=== PATIENT | male | born 1980 | race Caucasian/White ===

== ENCOUNTER 2018-05-16 09:08 | Observation (INO) ==
--- NOTE | 2018-05-16 09:36 | ED ---
HPI General Chief complaint: Urogenital-Male Stated complaint: Urinary/Headache/Stomach/Skin Complaint Time Seen by Provider: 05/16/18 09:24 History of Present Illness HPI narrative: This is a 38-year-old male who presents for evaluation. He reports that for 4 days he has had dark colored urine and body aches. He has never had this problem before. He reports slight discomfort with urination but would not describe it as pain. He denies abdominal pain, nausea or vomiting, urethral discharge, is not sexually active. 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 No known history of hepatitis. Symptoms are moderate, duration 4 days, no obvious aggravating or other complaints at this time. Related Data Home Medications Medication Instructions Recorded Confirmed No Known Home Medications 05/16/18 05/16/18 Allergies Allergy/AdvReac Type Severity Reaction Status Date / Time No Known Allergies Allergy Verified 05/16/18 09:21 Review of Systems ROS: all other systems reviewed are negative PMFSH Surgical History Surgical History H/O neck surgery (Acute) History of surgery on arm (Acute) Social History Social History Substance History: Past History Second Hand Smoke Exposure: No Smoking Status: Current every day smoker Tobacco Type: Cigarettes How Often Do You Have a Drink Containing Alcohol: Monthly or less Recent Travel in [facility] within the Last 8 Weeks: No Recent Out of Country Travel within the Last 8 Weeks: No Exam Narrative Exam Narrative: GENERAL: Well-developed well-nourished male no acute distress SKIN: Warm and dry. HEAD: Atraumatic. Normocephalic. EYES: Pupils equal and round. +scleral icterus. No injection or drainage. ENT: No nasal bleeding or discharge. Mucous membranes pink and moist. NECK: Trachea midline. No JVD. CARDIOVASCULAR: Regular rate and rhythm. No murmur appreciated. RESPIRATORY: No accessory muscle use. Clear to auscultation. Breath sounds equal bilaterally. GASTROINTESTINAL: Abdomen soft, non-tender, nondistended. Hepatic and splenic margins not palpable. MUSCULOSKELETAL: No obvious deformities. No clubbing. No cyanosis. No edema. NEUROLOGICAL: Awake and alert. No obvious cranial nerve deficits. Motor grossly within normal limits. Normal speech. Course Initial Documented Vital Signs Temperature 99.2 F 05/16/18 09:17 Pulse Rate 88 05/16/18 09:17 Respiratory Rate 16 05/16/18 09:17 Blood Pressure 114/64 05/16/18 09:17 Pulse Oximetry 98 05/16/18 09:17 Last Documented Vital Signs Temperature 99.2 F 05/16/18 09:17 Pulse Rate 88 05/16/18 09:17 Respiratory Rate 16 05/16/18 09:17 Blood Pressure 114/64 05/16/18 09:17 Pulse Oximetry 98 05/16/18 09:17 Medical Decision Making ASHLYN Attestation ASHLYN supervised visit: Yes Attestation: I was present with the advanced practitioner during the management of this patient. I discussed the case with the advanced practitioner and agree with the findings and plan as documented in their note except as noted below. 38yM presenting with myalgias, chills, and dark discoloration of urine x 4 days. The patient also admits to urinary urgency but denies dysuria. He denies penile lesions or discharge, admits to IVDA. Family history significant for brother with hep C, no family history of kidney disease. Plan is to check labs and urine, give IV fluids, reassess. MDM Narrative Medical decision making narrative: 38-year-old male with 4-day history of dark colored urine and body aches. His urine sample at bedside is tea colored. IV established, lab work sent, the patient was given IV fluid bolus. Lab work reviewed, liver enzymes are significantly elevated, bilirubin 4.3, AST 1941, ALT 2169, this and his history of IV drug use is suspicious for viral hepatitis. Plan is to admit the patient for further evaluation and treatment. Hepatitis profile ordered. Medical Screen Exam Complete: Yes Emergency Medical Condition: Yes Differential Diagnosis Differential Diagnosis: Rhabdomyolysis, dehydration, UTI, hematuria, elevated bilirubin level Lab Data Result diagrams: 05/16/18 09:45 05/16/18 09:45 Lab Results 05/16/18 05/16/18 05/16/18 Range/Units 09:45 09:45 09:45 WBC 4.0 (4.0-11.0) th/mm3 RBC 4.19 L (4.50-5.90) mil/mm3 Hgb 13.3 (13.0-17.0) gm/dL Hct 38.7 L (39.0-51.0) % MCV 92.4 (80.0-100.0) fL MCH 31.7 (27.0-34.0) pg MCHC 34.3 (32.0-36.0) % RDW 14.0 (11.6-17.2) % Plt Count 155 (150-450) th/mm3 MPV 9.3 (7.0-11.0) fL Neut % (Auto) 45.7 (16.0-70.0) % Lymph % (Auto) 31.9 (9.0-44.0) % Swisher % (Auto) 12.4 H (0.0-8.0) % Eos % (Auto) 3.9 (0.0-4.0) % Baso % (Auto) 6.1 H (0.0-2.0) % Neut # (Auto) 1.8 (1.8-7.7) th/mm3 Lymph # (Auto) 1.3 (1.0-4.8) th/mm3 Swisher # (Auto) 0.5 (0.0-0.9) th/mm3 Eos # (Auto) 0.2 (0.0-0.4) th/mm3 Baso # (Auto) 0.2 (0.0-0.2) th/mm3 WBC Differential . Differential Comment Auto diff final Sodium 137 (136-145) meq/L Potassium 3.6 (3.5-5.1) meq/L Chloride 102 (98-107) meq/L Carbon Dioxide 24.7 (21.0-32.0) meq/L Anion Gap 10 (5-15) meq/L BUN 10 (7-18) mg/dL Creatinine 0.80 (0.60-1.30) mg/dL Estimated GFR Greater than 89 (>89) mL/min Random Glucose 98 (74-106) mg/dL Calcium 8.4 L (8.5-10.1) mg/dL Total Bilirubin 4.3 H (0.2-1.0) mg/dL Direct Bilirubin 3.6 H (0.0-0.2) mg/dL Indirect Bilirubin 0.7 (0.0-0.8) mg/dL AST 1941 H (15-37) U/L ALT 2169 H (12-78) U/L Alkaline Phosphatase 246 H (45-117) U/L Total Creatine Kinase 43 (39-308) U/L Total Protein 6.9 (6.4-8.2) g/dL Albumin 2.8 L (3.4-5.0) g/dL Urine Color Irma (Yellw/Straw) Urine Clarity Turbid H (Clear) Urine pH 5.0 (5.0-8.5) Ur Specific [place] 1.024 (1.002-1.035) Urine Protein 30 H (Neg-Trace) mg/dL Urine Glucose (UA) Negative (Negative) mg/dL Urine Ketones Negative (Negative) mg/dL Urine Occult Blood Negative (Negative) Urine Nitrate Negative (Negative) Urine Bilirubin Moderate H (Negative) Urine Ictotest Positive H (Negative) Urine Urobilinogen 4 or greater (Less than 2) mg/dL Ur Leukocyte Esterase Negative (Negative) Urine WBC 1 (0-5) /hpf Amorphous Sediment Many H (None) /hpf Urine Bacteria Occasional H (None) /hpf Urine Mucus Few H (Occasional) /lpf Micro UA Comment Culture not ind Ur Microscopic Review Not Reportable Urine Culture Comments Culture not ind Discharge Plan Discharge Disposition Patient Disposition: 30 Still Patient Discharge Condition Condition: Stable Discharge Details Diagnosis: Transaminitis Physicians Team ED Provider: Cally Renee ED Midlevel Provider: Rudi Luis Primary Care Provider: Primary Care Liliya Lomas Attending Provider: Manuel Zepeda Status ED Status: Admitted Observation Patient
[2018-05-16] MEDS ORDERED: Sod Chloride 0.9% Inj 1,000 ML IV.SIG SCH (09:45)
[2018-05-16 10:24] LABS: Baso # (Auto) 0.2 th/mm3 (0.0-0.2); Baso % (Auto) 6.1 % (0.0-2.0); Eos # (Auto) 0.2 th/mm3 (0.0-0.4); Eos % (Auto) 3.9 % (0.0-4.0); Hematocrit 38.7 % (39.0-51.0); Hemoglobin 13.3 gm/dL (13.0-17.0); Lymph # (Auto) 1.3 th/mm3 (1.0-4.8); Lymph % (Auto) 31.9 % (9.0-44.0); Mean Corpuscular HGB Conc 34.3 % (32.0-36.0); Mean Corpuscular Hemoglobin 31.7 pg (27.0-34.0); Mean Corpuscular Volume 92.4 fL (80.0-100.0); Mean Platelet Volume 9.3 fL (7.0-11.0); Mono # (Auto) 0.5 th/mm3 (0.0-0.9); Mono % (Auto) 12.4 % (0.0-8.0); Neut # (Auto) 1.8 th/mm3 (1.8-7.7); Neut % (Auto) 45.7 % (16.0-70.0); Platelet Count 155 th/mm3 (150-450); Red Blood Count 4.19 mil/mm3 (4.50-5.90)
[2018-05-16 10:34] LABS: Amorphous Sediment,Urine Many /hpf; Bacteria,Urine Occasional /hpf; Bilirubin,Urine Moderate (Negative); Clarity,Urine Turbid (Clear); Glucose,Urine (UA) Negative (Negative); Leukocyte Esterase,Urine Negative (Negative); Mucus,Urine Few /lpf (Occasional); Nitrite,Urine Negative (Negative); Specific Gravity,Urine 1.024 (1.002-1.035); Urobilinogen,Urine 4 or Greater mg/dL (Less than 2)
[2018-05-16 10:37] LABS: Color,Urine Amber (Yellw/Straw)
[2018-05-16 10:43] LABS: Ictotest,Urine Positive (Negative)
[2018-05-16 10:45] LABS: Albumin 2.8 g/dL (3.4-5.0); Anion Gap 10 meq/L (5-15); Blood Urea Nitrogen 10 mg/dL (7-18); Calcium 8.4 mg/dL (8.5-10.1); Carbon Dioxide 24.7 meq/L (21.0-32.0); Chloride 102 meq/L (98-107); Glomerular Filtration Rate Greater Than 89 mL/min (>89); Glucose,Random 98 mg/dL (74-106); Potassium 3.6 meq/L (3.5-5.1); Sodium 137 meq/L (136-145)
[2018-05-16] MEDS ORDERED: Ibuprofen 400 MG Tablet PO ONE (10:49)
[2018-05-16 10:54] LABS: Alanine Aminotransferase 2169 U/L (12-78); Alkaline Phosphatase 246 U/L (45-117); Aspartate Aminotransferase 1941 U/L (15-37); Total Protein 6.9 g/dL (6.4-8.2)
[2018-05-16 10:55] LABS: Creatine Kinase 43 U/L (39-308)
[2018-05-16 12:13] LABS: Amphetamine Screen,Urine Neg (Neg); Barbiturate Screen,Urine Neg (Neg); Cannabinoid Screen,Urine Neg (Neg); Cocaine Screen,Urine Neg (Neg)
[2018-05-16 12:26] LABS: Opiate Screen,Urine Neg (Neg)
--- NOTE | 2018-05-16 12:37 | US ---
EXAM DATE: 05/16/2018 12:34 PM EST AGE/SEX: 38 years / Male INDICATIONS: Abnormal labs. CLINICAL DATA: This is the patient's initial encounter. Patient reports that signs and symptoms have been present for 1 day and indicates a pain score of 0/10. MEDICAL/SURGICAL HISTORY: . Cervical fracture. IVDU. . Cervical neck surgery. Arm surgery. COMPARISON: No prior exams available for comparison. MEASUREMENTS: Liver:__ 18.3 cm. Common Bile Duct:___ 5mm. Right Kidney:___11.0 x 5.7 x 5.2 cm. Left Kidney:___10.5 x 5.3 x 4.8 cm. Spleen:___13.7 cm. FINDINGS: Liver: Normal echotexture without focal lesion or ductal dilatation. Portal Vein: Hepatopedal flow seen in portal vein. Common Duct: No intraluminal mass or stone visualized. Gallbladder: There is slight within the gallbladder and slight pericholecystic fluid and a trace of a scites in the upper abdomen. No definite gallstones are seen. Pancreas: The visualized portions are within normal limits Right Kidney: Normal echotexture and cortical thickness. No mass or hydronephrosis. Left Kidney: Normal echotexture and cortical thickness. No mass or hydronephrosis. Ascites: FINDINGS Pleural Effusion: None Spleen: No focal lesion. Aorta: Non aneurysmal. IVC: Within normal limits Other: None. CONCLUSION: 1. Slight pericholecystic fluid and slightly in the gallbladder. Possibility of cholecystitis should be entertained in the appropriate clinical setting although no definite stones are visualized for mackenzie petersonzaheer. Electronically signed by: Rodrigo Preston MD 05/16/2018 12:36 PM EST
[2018-05-16 12:55] LABS: Hepatitits B Surface Antigen Nonreactive (Nonreactive)
--- NOTE | 2018-05-16 13:02 | P.HP ---
History of Present Illness Primary Care Physician: No Primary Care Physician History of Present Illness: 38-year-old white male being admitted for acute transaminitis. Patient reports being in his usual state of health until about 2 weeks ago and began experiencing diffuse body aches. He then began noticing some maroon colored urine about 1 week ago. Has had some intermittent nausea. But no jonathan abdominal pain or diarrhea. Denies any jaundice. Says he just got out of detoxification at [facility] for crystal methamphetamine use 5 days ago. Says the last time he might have did some IV specific drug use was possibly a month ago. Says most of the time he is to just inhale when he was using. In the emergency department his vital signs are stable. CBC is unremarkable. CMP shows liver enzymes in the 1999s. Review of Systems All other systems reviewed negative except as stated in HPI PMFSH - History History Provided By: Patient - Surgical History Surgical History: Surgical History (Last Updated 05/16/18 @ 13:05 by Manuel Zepeda MD) History of surgery on arm (Acute) H/O neck surgery (Acute) - Family History Family History: Family History (Last Updated 05/16/18 @ 13:05 by Manuel Zepeda MD) Brother Hepatitis C - Social History I have reviewed the patient's Social History: Yes - Tobacco History Second Hand Smoke Exposure: No Tobacco Use In Past 30 Days: Yes Smoking Status: Current every day smoker Tobacco Type: Cigarettes - Alcohol History How Often Do You Have a Drink Containing Alcohol: Monthly or less - Substance Use History Substance History: Past History - Substance Use Type Methamphetamine Status: Early Remission Route Used: Inhalation, Intravenously Comment: PT STATES HE MOVED FROM [place] TO GO TO [facility] LAST TUESDAY -RELEASED THIS PAST TUESDAY- PT IS L[address]ING IN [address] [place] [address] @ THIS TIME. - Travel History Recent Travel in the [facility] Within the Last 8 Weeks: No Recent Travel Out of the Country Within the Last 8 Weeks: No - Immunization History Tetanus Immunization: <5 Years Medications and Allergies Active Medications: Active Medications Sodium Chloride (Ns Flush) 2 ml IV.FLUSH BID PEPE Sodium Chloride (Ns Flush) 2 ml IV.FLUSH PRN PRN PRN Reason: FLUSH AFTER USING IV ACCESS Allergies Allergy/AdvReac Type Severity Reaction Status Date / Time No Known Allergies Allergy Verified 05/16/18 09:21 Home Medications Medication Instructions Recorded Confirmed Type No Known Home Medications 05/16/18 05/16/18 History Exam Vital signs: Vital Signs 05/16/18 09:17 Temperature 99.2 F Pulse Rate 88 Respiratory Rate 16 Blood Pressure 114/64 Pulse Oximetry 98 Intake & Output 05/15/18 05/16/18 05/16/18 18:59 06:59 18:59 Intake Total 1000 / 1000 Balance 1000 / 1000 Weight 68.039 kg Intake: IV 1000 / 1000 NS Inj 1,000 ML @ 1000 mls/hr 1000 / 1000 IV.SIG BOLUS PEPE Rx#:[id number] Narrative: VS: afebrile GENERAL: Young white male, well-nourished SKIN: Warm and dry. EYES: No scleral icterus. No injection or drainage. ENT: No nasal bleeding or discharge. Mucous membranes pink and moist. CARDIOVASCULAR: Regular rate and rhythm. no murmurs RESPIRATORY: No accessory muscle use. Clear to auscultation. Breath sounds equal bilaterally. GASTROINTESTINAL: Abdomen soft, non-tender, nondistended. Extremities: No clubbing, cyanosis, or edema. No obvious deformities. MUSCULOSKELETAL: adequate muscle bulk and tone for age and habitus NEUROLOGICAL: Awake and alert. No obvious cranial nerve deficits. No facial droop nor slurred speech noted. PSYCHIATRIC: Appropriate mood and affect; insight and judgment normal. Results - Labs CBC & Chem 7: 05/16/18 09:45 05/16/18 09:45 Labs: Laboratory Results - last 24 hr 05/16/18 05/16/18 05/16/18 09:45 09:45 09:45 WBC 4.0 RBC 4.19 L Hgb 13.3 Hct 38.7 L MCV 92.4 MCH 31.7 MCHC 34.3 RDW 14.0 Plt Count 155 MPV 9.3 Neut % (Auto) 45.7 Lymph % (Auto) 31.9 Beauregard % (Auto) 12.4 H Eos % (Auto) 3.9 Baso % (Auto) 6.1 H Neut # (Auto) 1.8 Lymph # (Auto) 1.3 Bea[place]gard # (Auto) 0.5 Eos # (Auto) 0.2 Baso # (Auto) 0.2 WBC Differential . Differential Comment Auto diff final Sodium 137 Potassium 3.6 Chloride 102 Carbon Dioxide 24.7 Anion Gap 10 BUN 10 Creatinine 0.80 Estimated GFR Greater than 89 Random Glucose 98 Calcium 8.4 L Total Bilirubin 4.3 H Direct Bilirubin 3.6 H Indirect Bilirubin 0.7 AST 1941 H ALT 2169 H Alkaline Phosphatase 246 H Total Creatine Kinase 43 Total Protein 6.9 Albumin 2.8 L Urine Color Irma Urine Clarity Turbid H Urine pH 5.0 Ur Specific [place] 1.024 Urine Protein 30 H Urine Glucose (UA) Negative Urine Ketones Negative Urine Occult Blood Negative Urine Nitrate Negative Urine Bilirubin Moderate H Urine Ictotest Positive H Urine Urobilinogen 4 or greater Ur Leukocyte Esterase Negative Urine WBC 1 Amorphous Sediment Many H Urine Bacteria Occasional H Urine Mucus Few H Micro UA Comment Culture not ind Ur Microscopic Review Not Reportable Urine Culture Comments Culture not ind Urine Opiates Screen Ur Barbiturates Screen Ur Amphetamines Screen U Benzodiazepines Scrn Urine Cocaine Screen U Cannabinoids Screen Hep Bs Antigen 05/16/18 05/16/18 09:45 11:30 WBC RBC Hgb Hct MCV MCH MCHC RDW Plt Count MPV Neut % (Auto) Lymph % (Auto) Beauregard % (Auto) Eos % (Auto) Baso % (Auto) Neut # (Auto) Lymph # (Auto) Bea[place]gard # (Auto) Eos # (Auto) Baso # (Auto) WBC Differential Differential Comment Sodium Potassium Chloride Carbon Dioxide Anion Gap BUN Creatinine Estimated GFR Random Glucose Calcium Total Bilirubin Direct Bilirubin Indirect Bilirubin AST ALT Alkaline Phosphatase Total Creatine Kinase Total Protein Albumin Urine Color Urine Clarity Urine pH Ur Specific [place] Urine Protein Urine Glucose (UA) Urine Ketones Urine Occult Blood Urine Nitrate Urine Bilirubin Urine Ictotest Urine Urobilinogen Ur Leukocyte Esterase Urine WBC Amorphous Sediment Urine Bacteria Urine Mucus Micro UA Comment Ur Microscopic Review Urine Culture Comments Urine Opiates Screen Neg Ur Barbiturates Screen Neg Ur Amphetamines Screen Neg U Benzodiazepines Scrn Neg Urine Cocaine Screen Neg U Cannabinoids Screen Neg Hep Bs Antigen Nonreactive - Imaging Impressions Abdomen Ultrasound 05/16/18 00:00 CONCLUSION: 1. Slight pericholecystic fluid and slightly in the gallbladder. Possibility of cholecystitis should be entertained in the appropriate clinical setting although no definite stones are visualized for technique. Caprini VTE Risk Assessment Caprini VTE Risk Assessment: No/Low Risk (score <= 1) Caprini Risk Assessment Model: Point Value = 1 Point Value = 2 Point Value = 3 Point Value = 5 Age 41-60 Minor surgery BMI > 25 kg/m2 Swollen legs Varicose veins or History of unexplained or recurrent spontaneous Oral contraceptives or hormone replacement Sepsis (< 1 month) Serious lung disease, including pneumonia (< 1 month) Abnormal pulmonary function Acute myocardial infarction Congestive heart failure (< 1 month) History of inflammatory bowel disease Medical patient at bed rest Age 61-74 Arthroscopic surgery Major open surgery (> 45 min) Laparoscopic surgery (> 45 min) Malignancy Confined to bed (> 72 hours) Immobilizing plaster cast Central venous access Age >= 75 History of VTE Family history of VTE Factor V Leiden Prothrombin [id number] Lupus anticoagulant Anticardiolipin antibodies Elevated serum homocysteine Heparin-induced thrombocytopenia Other congenital or acquired thrombophilia Stroke (< 1 month) Elective arthroplasty Hip, pelvis, or leg fracture Acute spinal cord injury (< 1 month) Prophylaxis Regimen: Total Risk Factor Score Risk Level Prophylaxis Regimen 0-1 Low Early ambulation 2 Moderate Order ONE of the following: *Sequential Compression Device (SCD) *Heparin 5000 units SQ BID 3-4 Higher Order ONE of the following medications: *Heparin 5000 units SQ TID *Enoxaparin/Lovenox 40 mg SQ daily (WT < 150 kg, CrCl > 30 mL/min) *Enoxaparin/Lovenox 30 mg SQ daily (WT < 150 kg, CrCl > 10-29 mL/min) *Enoxaparin/Lovenox 30 mg SQ BID (WT < 150 kg, CrCl > 30 mL/min) AND/OR *Sequential Compression Device (SCD) 5 or more Highest Order ONE of the following medications: *Heparin 5000 units SQ TID (Preferred with Epidurals) *Enoxaparin/Lovenox 40 mg SQ daily (WT < 150 kg, CrCl > 30 mL/min) *Enoxaparin/Lovenox 30 mg SQ daily (WT < 150 kg, CrCl > 10-29 mL/min) *Enoxaparin/Lovenox 30 mg SQ BID (WT < 150 kg, CrCl > 30 mL/min) AND *Sequential Compression Device (SCD) Assessment and Plan - Plan 38-year-old white male being admitted for acute transaminitis. Hemodynamically stable upon admission, no signs of sepsis at this time. Acute transaminitis with direct hyperbilirubinemia Possibly secondary to viral hepatitis Viral hepatitis profile pending Repeat CMP in a.m., IV fluids Diet as tolerated Abdominal ultrasound Discharge Planning: Anticipate discharge tomorrow.
[2018-05-16 13:17] LABS: Hepatitis A IgM Antibody Reactive (Nonreactive)
[2018-05-16] MEDS: Sod Chloride 0.9% Inj 1,000 ML IV.CONT SCH (15:09)
[2018-05-17] MEDS ORDERED: Melatonin 5 MG Tablet PO ONE (00:23)
[2018-05-17] MEDS ORDERED: Aluminum/Magnesium/Simethacone Susp 30 ML UDC PO ONE (00:23)
[2018-05-17] MEDS: Sod Chloride 0.9% Inj 1,000 ML IV.CONT SCH ×2 (02:23→12:51)
[2018-05-17] MEDS ORDERED: Ibuprofen 400 MG Tablet PO ONE (05:34)
[2018-05-17 10:13] LABS: INR 1.2 Ratio; Prothrombin Time 12.3 sec (9.8-11.6)
--- NOTE | 2018-05-17 11:29 | P.PNIM ---
Subjective Interval history: Patient reports he is feeling tired. Otherwise no new complaints. Tolerating his diet. No pain. Physical Exam Vital signs: Vital Signs 05/16/18 16:00 05/16/18 20:00 05/17/18 00:00 Temperature 97.6 F 98.8 F 99.6 F Pulse Rate 69 74 75 Respiratory Rate 16 14 14 Blood Pressure 103/68 97/64 L 107/68 Pulse Oximetry 99 97 98 05/17/18 04:00 05/17/18 07:30 Temperature 98.0 F 98.5 F Pulse Rate 73 72 Respiratory Rate 17 16 Blood Pressure 109/65 90/63 L Pulse Oximetry 98 98 Intake & Output 05/16/18 05/17/18 05/17/18 18:59 06:59 18:59 Intake Total 1750 / 1750 1800 / 1800 Balance 1750 / 1750 1800 / 1800 Weight 68.039 kg 68.03 kg Intake: IV 1000 / 1000 1000 / 1000 NS Inj 1,000 ML @ 84 mls/hr IV. 1000 / 1000 CONT .[id number] PEPE Rx#:[id number] NS Inj 1,000 ML @ 1000 mls/hr 1000 / 1000 IV.SIG BOLUS PEPE Rx#:[id number] Oral 750 / 750 800 / 800 Other: # Voids 3 Weight On Admission 68.03 kg Narrative: GENERAL: This is a well-nourished, well-developed patient, in no apparent distress. CARDIOVASCULAR: Normal rate and regular rhythm without murmurs, gallops, or rubs. RESPIRATORY: Good respiratory efforts. Breath sounds equal and clear to auscultation bilaterally. GASTROINTESTINAL: Abdomen soft, non-tender, non-distended. Normal active bowel sounds MUSCULOSKELETAL: Extremities without cyanosis, or edema. NEURO: Alert & Oriented x4 to person, place, time, situation. Moves all ext x4 PSYCH: Appropriate mood and affect. Results - Labs CBC & Chem 7: 05/16/18 09:45 05/17/18 10:37 Laboratory Results - last 24 hr 05/16/18 05/16/18 05/17/18 09:45 11:30 09:25 PT 12.3 H INR 1.2 Urine Opiates Screen Neg Ur Barbiturates Screen Neg Ur Amphetamines Screen Neg U Benzodiazepines Scrn Neg Urine Cocaine Screen Neg U Cannabinoids Screen Neg Hepatitis A IgM Ab Reactive H Hep Bs Antigen Nonreactive Hep B Core IgM Ab Nonreactive Hep C IgG Ab Nonreactive - Imaging Impressions Abdomen Ultrasound 05/16/18 00:00 CONCLUSION: 1. Slight pericholecystic fluid and slightly in the gallbladder. Possibility of cholecystitis should be entertained in the appropriate clinical setting although no definite stones are visualized for technique. Assessment and Plan - Plan 38-year-old white male being admitted for acute transaminitis. Workup positive for hepatitis a. Abdominal ultrasound showed mild pericholecystic fluid but he is asymptomatic from that standpoint. The patient's symptoms can be attributed to acute viral hepatitis A. his liver enzymes improved. The expected to slowly continue to trend down. He is deemed stable for discharge home to follow-up outpatient. He was extensively counseled on proper hygiene. All of his questions were answered. Discharge Planning: Discharge patient to home Condition on discharge: Improved Regular Diet as tolerated Ad Lily activity Rx written: None Follow-up with primary care physician
[2018-05-17 11:43] LABS: Albumin 2.3 g/dL (3.4-5.0); Anion Gap 8 meq/L (5-15); Blood Urea Nitrogen 8 mg/dL (7-18); Carbon Dioxide 25.5 meq/L (21.0-32.0); Chloride 109 meq/L (98-107); Glomerular Filtration Rate Greater Than 89 mL/min (>89); Glucose,Random 118 mg/dL (74-106); Potassium 3.4 meq/L (3.5-5.1); Sodium 142 meq/L (136-145)
[2018-05-17 11:51] LABS: Alanine Aminotransferase 1811 U/L (12-78); Alkaline Phosphatase 208 U/L (45-117); Aspartate Aminotransferase 1420 U/L (15-37); Total Protein 5.9 g/dL (6.4-8.2)
[2018-05-17 15:34] VITALS: BP 113/68; PULSE 82; RESP 16; TEMP 98.6; O2SAT 100
== END 2018-05-17 16:48 | disposition home or self-care (01) ==
LOC: NEPD 09:08 → NEDA 09:08 → NEPFCDU 15:12
PROVIDERS: ADMIT Family Medicine; ATTEND Family Medicine